=== PATIENT | female | born 1960 | race Caucasian/White ===

== ENCOUNTER 2016-12-16 09:49 | Day surgery (SDC) | payer OTHER ==
[~2016-12-16 09:49] MED LIST: LACTATED RINGERS 1,000 ML IV SCH
[2016-12-16] MEDS ORDERED: LACTATED RINGERS 1,000 ML ONE (10:04)
[2016-12-16] MEDS ORDERED: IV START KIT ONE (10:04)
[2016-12-16] MEDS ORDERED: LIDOCAINE Viscous 2% 15 ML UDCUP ONE (11:01)
[2016-12-16] MEDS ORDERED: PROPOFOL 20 ML IV ONE (11:02)
[2016-12-16 15:51] LABS: HELICOBACTER PYLORII DETECTION NEGATIVE (NEGATIVE)
--- NOTE | 2016-12-18 13:10 | SURGPATH ---
[facility] [address] [place] [id number] Patient Name: KATHERYN LUNA MR#: [id number] : 1960 Gender: F Specimen #: [id number] Collected: 12/16/2016 Received: 12/17/2016 Reported: 12/18/2016 Submitting Phys: FAVIOLA SPRINGER Copy To Phys: [facility] ANITA LIMON Clinical History / Pre-Operative Diagnosis: EPIGASTRIC PAIN WITH HEARTBURN; NAUSEA; DYSPHAGIA; RULE OUT GIARDIA, CELIAC SPRUE AND GASTRITIS Specimen Source / Surgical Procedure Performed: #1-DUODENAL BIOPSY; #2-ANTRAL BIOPSY Interpretation: 1. DUODENAL BIOPSY: - NO SIGNIFICANT PATHOLOGIC ABNORMALITIES IDENTIFIED. 2. ANTRAL BIOPSY: - NO SIGNIFICANT PATHOLOGIC ABNORMALITIES IDENTIFIED. Electronically Signed Out Rocio Steward M.D. Gross Description: #1 The specimen is received in a formalin filled container labeled with the patient's name and "duodenal biopsy". Two chamberlain biopsies are 0.4 and 0.5 cm. Totally embedded in cassette #1. #2 The specimen is received in a formalin filled container labeled with the patient's name and "antral biopsy". A single chamberlain biopsy is 0.4 cm. Totally embedded in cassette #2. Cami Kilgore Microscopic Description: 1. Sections of specimen #1 show fragments of duodenal mucosa. Where the villi are well oriented, they appear to be long and slender. No significant pathologic inflammation is identified. There is no evidence of parasitic organisms or neoplasm. 2. Sections of the antral biopsy show benign gastric mucosa with no significant pathologic changes. No Helicobacter organisms are appreciated on the routinely stained sections. 1: [id number] 2: 45040 R10.13
== END 2016-12-16 12:29 | disposition home or self-care (01) ==
LOC: SDC 09:49
PROVIDERS: ATTEND Internal Medicine Gastroenterology
PROC: 0DB98ZX Excision of Duodenum, Via Natural or Artificial Opening Endoscopic, Diagnostic (ICD-10-PCS; principal; 2016-12-16)
PROC: 0DB68ZX Excision of Stomach, Via Natural or Artificial Opening Endoscopic, Diagnostic (ICD-10-PCS; 2016-12-16)
DX: K29.70 Gastritis, unspecified, without bleeding (principal); K29.80 Duodenitis without bleeding; I10 Essential (primary) hypertension; E11.9 Type 2 diabetes mellitus without complications; M79.7 Fibromyalgia; E78.5 Hyperlipidemia, unspecified; E03.9 Hypothyroidism, unspecified; F41.9 Anxiety disorder, unspecified; Z88.5 Allergy status to narcotic agent; Z88.8 Allergy status to other drugs, medicaments and biological substances; Z91.040 Latex allergy status; Z79.84 Long term (current) use of oral hypoglycemic drugs; Z79.82 Long term (current) use of aspirin
CPT/HCPCS: 87081; 43239; A9270; J7120